=== PATIENT | male | born 1990 | race American Indian/Alaskan Native ===

== ENCOUNTER 2017-05-15 13:51 | Emergency (ER) | payer BC, OTHER ==
[2017-05-15 14:13] VITALS: BP 137/91
--- NOTE | 2017-05-15 14:37 | EDM.PDOC ---
ED HPI GENERAL MEDICAL PROBLEM - General Stated Complaint: DIZZY X 2 MONTHS Time Seen by Provider: 05/15/17 14:34 Source of Information: Reports: Patient History Limitations: Reports: No Limitations - History of Present Illness INITIAL COMMENTS - FREE TEXT/NARRATIVE: 26 yo male presents with c/o dizziness x 2-3 months that is worse the past 3 days. States that he feels "like i am crossed eyed and I have to sit down." Denies pain, n/v or headache. no other complaints. Onset: Gradual Onset Date: 05/12/17 Duration: Getting Worse Location: Reports: Generalized Improves with: Reports: None Worsens with: Reports: Movement Context: Reports: Activity Associated Symptoms: Reports: No Other Symptoms - Related Data Allergies Allergy/AdvReac Type Severity Reaction Status Date / Time No Known Allergies Allergy Verified 05/15/17 14:43 Home Meds: Home Meds carBAMazepine [TEGretol Tab] 1,200 mg PO DAILY 05/15/17 [History] lamoTRIgine [Lamotrigine] 100 mg PO BID 05/15/17 [History] ED ROS GENERAL - Review of Systems Review Of Systems: ROS reveals no pertinent complaints other than HPI. ED EXAM, DIZZINESS - Physical Exam Exam: See Below Exam Limited By: No Limitations General Appearance: Alert, WD/WN, No Apparent Distress Eye Exam: Bilateral Eye: EOMI, PERRL Ears: Normal External Exam, Normal Canal, Hearing Grossly Normal, TM Fluid ( bilaterally) Nose: Normal Inspection, Normal Mucosa, No Blood Throat/Mouth: Normal Inspection, Normal Lips, Normal Teeth, Normal Gums, Normal Oropharynx, Normal Voice, No Airway Compromise Head Exam: Atraumatic, Normocephalic Neck: Normal Inspection, Supple, Non-Tender, Full Range of Motion Respiratory/Chest: No Respiratory Distress, Lungs Clear, Normal Breath Sounds, No Accessory Muscle Use, Chest Non-Tender Cardiovascular: Normal Peripheral Pulses, Regular Rate, Rhythm, No Edema, No Gallop, No JVD, No Murmur, No Rub Neurological: Alert, Normal Mood/Affect, Normal Dorsiflexion, CN II-XII Intact, Normal Plantar Flexion, Normal Gait, No Motor/Sensory Deficits, Oriented x 3 Course - Vital Signs Last Recorded V/S: Last Vital Signs Temp 98.4 F 05/15/17 14:12 Pulse 84 05/15/17 14:12 Resp 18 07/21/17 14:12 BP 137/91 H 05/15/17 14:12 Pulse Ox 97 05/15/17 14:12 Departure - Departure Time of Disposition: 15:46 Disposition: Home, Self-Care 01 Condition: Good Clinical Impression: Middle ear effusion Qualifiers: Laterality: bilateral Qualified Code(s): H65.93 - Unspecified nonsuppurative otitis media, bilateral - Discharge Information Instructions: Labyrinthitis Forms: ED Department Discharge Additional Instructions: Return for worsengin symptoms. Follow up with your PCP . Let your neurologist know that you have been having dizziness since starting the new medication.
--- NOTE | 2017-05-15 15:05 | CT ---
Clinical history: 26-year-old male complaining of dizziness. Rule out intracranial mass or other abn ormality. Scan technique: Volume acquisition of data emergency unenhanced CT scan of the head and brain obtain ed with patient lying supine on the Siemens multi slice scanner [facility]. All data archived in the PACS system for storage and study (bone/brain windows). Interpretation: Negative. Uniformly thick bony calvarium without sign of skull fracture or underlying brain contusion. No abno rmal extracerebral/and cranial epidural or subdural hematoma. Symmetric normal john-white matter pattern. Underlying mirror-image normal ventricular system. (Phys iologic midline pineal and faint symmetric choroid plexus calcifications). No focal areas of ischemic infarct or signs of acute intracerebral/intraventricular/subarachnoid ble ed. Cerebellum and brainstem unremarkable.
== END 2017-05-15 16:16 | disposition home or self-care (01) ==
LOC: DL.ED 13:51
DX: H65.93 Unspecified nonsuppurative otitis media, bilateral (principal); Z79.899 Other long term (current) drug therapy
CPT/HCPCS: 70450; 99284

== ENCOUNTER 2017-11-16 20:36 | Emergency (ER) | payer BC, OTHER ==
[2017-11-16] MEDS ORDERED: Lidocaine 1% 30 ML SDV INJECT ONE (20:54)
[2017-11-16 21:08] VITALS: BP 124/82
--- NOTE | 2017-11-16 21:23 | EDM.PDOC ---
ED HPI GENERAL MEDICAL PROBLEM - General Chief Complaint: Skin Complaint Stated Complaint: GASH ABOVE LEFT EYE [id number] Time Seen by Provider: 11/16/17 21:18 Source of Information: Reports: Patient History Limitations: Reports: No Limitations - History of Present Illness INITIAL COMMENTS - FREE TEXT/NARRATIVE: got elbowed during basketball, no LOC Treatments FOREIGN STUDENT ADVISER: Reports: Other (see below) Other Treatments FOREIGN STUDENT ADVISER: wound cleansed with soap and water Left Eye Pain Score (Numeric/FACES): 4 - Related Data Allergies Allergy/AdvReac Type Severity Reaction Status Date / Time No Known Allergies Allergy Verified 11/16/17 21:08 Home Meds: Home Meds carBAMazepine [TEGretol Tab] 600 mg PO BID 05/15/17 [History] Past Medical History HEENT History: Reports: None Cardiovascular History: Reports: None Respiratory History: Reports: None Gastrointestinal History: Reports: None Genitourinary History: Reports: None Musculoskeletal History: Reports: None Neurological History: Reports: Seizure Psychiatric History: Reports: None Endocrine/Metabolic History: Reports: None Hematologic History: Reports: None Immunologic History: Reports: None Oncologic (Cancer) History: Reports: None Dermatologic History: Reports: None Social & Family History - Family History Family Medical History: Noncontributory - Tobacco Use Smoking Status *Q: Never Smoker - Caffeine Use Caffeine Use: Reports: Soda - Recreational Drug Use Recreational Drug Use: No ED ROS GENERAL - Review of Systems Review Of Systems: ROS reveals no pertinent complaints other than HPI. ED EXAM, SKIN/RASH Exam: See Below Exam Limited By: No Limitations General Appearance: Alert, WD/WN, No Apparent Distress Eye Exam: Bilateral Eye: PERRL (pupils ER @ 4mm) Ears: Hearing Grossly Normal Throat/Mouth: Normal Voice, No Airway Compromise Head: Atraumatic, Other (no O/B) Neck: Non-Tender, Full Range of Motion Respiratory/Chest: No Respiratory Distress Cardiovascular: Regular Rate, Rhythm GI/Abdominal: Soft, Non-Tender Neurological: Alert, Oriented, Normal Cognition, Normal Gait, No Motor/Sensory Deficits Psychiatric: Normal Affect, Normal Mood Skin: Warm, Dry, Normal Color Location, Skin: Face ED SKIN PROCEDURES - Laceration/Wound Repair Left Brow Lac/Wound length In cm: 2 (left brow) Appearance: Subcutaneous, Linear, Clean Anesthetic Type: Local Local Anesthesia - Lidocaine (Xylocaine): 1% Plain Local Anesthetic Volume: 5cc Skin Prep: Chlorhexidine (Hibiciens) Saline Irrigation (cc's): 20 Exploration/Debridement/Repair: Wound Explored, In a Bloodless Field, No Foreign Material Found Closed with: Sutures Suture Size: 4-0 Suture Type: Nylon, Interrupted Sterile Dressing Applied: Nurse Tetanus Status Addressed: Yes Complications: No Course - Vital Signs Last Recorded V/S: Last Vital Signs Temp 36.9 C 11/16/17 20:39 Pulse 113 H 11/16/17 20:39 Resp 16 11/16/17 20:39 BP 124/82 11/16/17 20:39 Pulse Ox 98 11/16/17 20:39 - Orders/Labs/Meds Meds: Medications Discontinued Medications Generic Name Dose Route Start Last Admin Trade Name Alda PRN Reason Stop Dose Admin Lidocaine HCl 30 ml 11/16/17 20:54 11/16/17 21:16 Xylocaine-Mpf 1% INJECT 11/16/17 20:55 30 ml ONETIME ONE Administration Departure - Departure Time of Disposition: 21:21 Disposition: Home, Self-Care 01 Condition: Good Clinical Impression: Laceration of brow without complication Qualifiers: Encounter type: initial encounter Qualified Code(s): S01.81XA - Laceration without foreign body of other part of head, initial encounter - Discharge Information Instructions: Sutured Wound Care, [id number] Additional Instructions: 1) keep wound clean dry 2) avoid boni areas 3) recheck if looks infected 4) suture removal 7 days
== END 2017-11-16 21:26 | disposition home or self-care (01) ==
LOC: DL.ED 20:36
DX: S01.81XA Laceration without foreign body of other part of head, initial encounter (principal); W50.0XXA Accidental hit or strike by another person, initial encounter; Y93.67 Activity, basketball
CPT/HCPCS: 12011; 99282

== ENCOUNTER 2023-02-25 11:37 | Emergency (ER) | payer OTHER ==
[2023-02-25] MEDS ORDERED: Sodium Chloride 0.9% 10 ML Syringe FLUSH PRN (11:54)
[2023-02-25] MEDS ORDERED: Vancomycin 2 GM in Sodium Chloride 0.9% 500 ML IV ONE (12:00)
[2023-02-25] MEDS ORDERED: diphenhydrAMINE 50 MG/ML SDV IVPUSH ONE (12:01)
[2023-02-25] MEDS ORDERED: Sodium Chloride 0.9% 1,000 ML IV SCH (12:15)
[2023-02-25 12:40] LABS: ANION GAP 12.7 mEq/L (7-13); CHLORIDE,CL 104 mmol/L (98-107); SODIUM,NA 140 mmol/L (136-145)
[2023-02-25 12:41] VITALS: BP 121/67; PULSE 93
[2023-02-25 12:42] LABS: ESTIMATED GFR 94 mL/min (>=60)
[2023-02-25] MEDS ORDERED: Diphtheria,Pertussis(Acell),Tetanus Vaccine 0.5 ML Syringe IM ONE (12:42)
[2023-02-25] MEDS ORDERED: Bacitracin Oint 1 GM U/D Packet TOP ONE (14:30)
== END 2023-02-25 15:04 | disposition home or self-care (01) ==
LOC: DL.ED 11:37
DX: L03.115 Cellulitis of right lower limb (principal)
CPT/HCPCS: 36415; 80053; 83605; 85025; 86140; 87040; 87070; 87077; 90471; 90715; 96365; 96366; 96375; 99283; 99283-25; A9270-GY; J1200; J3370; J3490; J7030; J7040